=== PATIENT | male | born 1955 | race Caucasian/White ===

== ENCOUNTER → 2021-06-13 13:51 | Outpatient (BNVA) | payer MEDICARE, BC, SELFPAY | PROVIDERS: PCP Internal Medicine; Visit Provider Psychiatry & Neurology Neurology | DX: G20 Parkinson's disease (principal); G47.33 Obstructive sleep apnea (adult) (pediatric); Z79.899 Other long term (current) drug therapy | CPT/HCPCS: 99212 ==

== ENCOUNTER → 2021-10-16 09:46 | Outpatient (BNVA) | payer MEDICARE, BC, SELFPAY | PROVIDERS: PCP Internal Medicine; Visit Provider Psychiatry & Neurology Neurology | DX: G20 Parkinson's disease (principal); G47.33 Obstructive sleep apnea (adult) (pediatric); Z79.899 Other long term (current) drug therapy | CPT/HCPCS: 99212 ==

== ENCOUNTER → 2022-04-23 10:47 | Outpatient (BNVA) | payer MEDICARE, BC, SELFPAY | PROVIDERS: PCP Internal Medicine; Visit Provider Psychiatry & Neurology Neurology | DX: G20 Parkinson's disease (principal); G47.33 Obstructive sleep apnea (adult) (pediatric); Z79.899 Other long term (current) drug therapy | CPT/HCPCS: 99212 ==

== ENCOUNTER 2022-10-14 10:30 | Outpatient (AMB) | payer MEDICARE, BC, SELFPAY ==
--- NOTE | 2022-10-14 10:29 | MHC.OFFVIS ---
Intake Vital Signs 10/14/22 10:35 Weight 249 lb BP 120/70 Blood Pressure Location Rt brachial Position Sitting Pulse 64 Pulse Source Pulse Oximeter Pulse Oximetry (%) 97 Oxygen Delivery Method Room Air Intake Visit Reasons: 6 mnts F/u parkinson's-lvm Intake Note: F/U Parkinsons [employer] Processor Required: No Allergies Bees Allergy (Severe, Uncoded 10/14/22 10:32) Swelling HPI HPI Comments History of Present Illness Details 66y/o male comes for follow up of parkinsons .The tremors are same . He is active - walks 3 miles a day . He is on 1 tab qid sinemet 25/100. He is exercising - bikes. In Mar 2021 he went to atrial fibrillation and had cardioversion. He was started on flecainide and metoprolol.His tremors are intermittent.He had a recent ablation He feels he has slowed down. memory is good, occasionally forgets names. sleep is good, has some vivid dreams. Denies depression , anxiety. He is motivated.He is active , works on his yard. Bowel movements are stable. He denies any trouble with urination. No change in speech. he is independent in all his activities of daily living. [facility] Medical History Atrial fibrillation Obstructive sleep apnea Plantar fasciitis Toxic effect of trichloroethylene Surgical History H/O heart surgery Family History Family/Other Stroke Thyroid disease Father Cerebral hemorrhage Mother No problems noted. Social History Alcohol intake: never Patient Tobacco Use Status: Never used Tobacco Use of substances other than those prescribed or required for medical reasons: No Physical Exam Vital Signs: Last Vital Signs Pulse 64 10/14/22 10:35 BP 120/70 10/14/22 10:35 Pulse Ox 97 10/14/22 10:35 Oxygen Delivery Method Room Air 10/14/22 10:35 Const General: cooperative, healthy appearing and no acute distress Orientation/consciousness: patient oriented x3 HEENT Head: Yes normal to inspection Neck Other: mild antecollis and restricted range of motion Neuro Other: Mild decreased blink and facial expression Voice- normal Left UE moderate amplitude rest tremors right LE tremors Fine Finger movements - moderately decreased jluis l>R Alternating hand movements - decreased jluis Hand movements - decreased jluis Foot taps- decreased jluis No cog wheel rigidity gait - stooped,good stride and turning decreased arm swing L>R General: patient oriented x3 and no focal motor deficits Cranial nerves: Yes CN's II-XII intact bilaterally, Yes Bilaterally intact EOM present, Yes Normal facial strength present and Yes Midline tongue present Cognition (Neuro): abnormal cognition (repeats questions frequently) Motor exam (neuro): 5/5 motor strength present throughout and Normal motor muscle tone present throughout Coordination: bkjzig-vr-wizk test normal Assessment & Plan Assessment & Plan (1) Parkinson's disease: Code(s): G20 - Parkinson's disease (2) Obstructive sleep apnea: Code(s): G47.33 - Obstructive sleep apnea (adult) (pediatric) Plan continue trihexyphenidyl 2mg 0.5mg tid sinemet 25/100 qid continue exercise CPAP compliance stressed Coding Level of Care Code Est Pt Level 4 (13402) Diagnoses Parkinson's disease G20 Obstructive sleep apnea G47.33
[2022-10-14 10:35] VITALS: BP 120/70; PULSE 64; O2SAT 97
== END 2022-10-14 11:07 | disposition home or self-care (01) ==
PROVIDERS: Visit Provider Psychiatry & Neurology Neurology
DX: G20 Parkinson's disease (principal); G47.33 Obstructive sleep apnea (adult) (pediatric)
CPT/HCPCS: 99214

== ENCOUNTER → 2022-10-14 10:30 | Outpatient (BNVA) | payer MEDICARE, BC, SELFPAY | PROVIDERS: Visit Provider Psychiatry & Neurology Neurology | DX: G20 Parkinson's disease (principal); G47.33 Obstructive sleep apnea (adult) (pediatric); Z79.899 Other long term (current) drug therapy | CPT/HCPCS: 99212 ==

== ENCOUNTER 2023-05-29 10:20 | Outpatient (AMB) | payer MEDICARE, BC, SELFPAY ==
--- NOTE | 2023-05-29 10:24 | A.OFFVIS_ITS ---
Intake Vital Signs 05/29/23 10:29 Height 6 ft Weight 264 lb BMI 35.8 BP 128/68 Blood Pressure Location Rt brachial Position Sitting Respiration 16 Pulse 67 Pulse Source Pulse Oximeter Pulse Oximetry (%) 97 Oxygen Delivery Method Room Air Intake Visit Reasons: 6m follow up Parkinson's-CONF Intake Note: Pt presents to the office for 6 month follow up for Parkinson's. [employer]ship Required: No Allergies Bees Allergy (Severe, Uncoded 05/29/23 10:29) Swelling HPI HPI Comments History of Present Illness Details 67y/o male comes for follow up of dejan sons .The tremors are same . He is active - walks 3 miles a day .He feels he is slower. He did yoga and it has helped iwth posture mainatinance. He is on 1 tab qid sinemet 25/100. He is exercising - bikes. In Mar 2021 he went to atrial fibrillation and had cardioversion. He was started on flecainide and metoprolol.His tremors are intermittent.He had a recent ablation memory is good, occasionally forgets names. sleep is good, has some vivid dreams. Denies depression , anxiety. He is motivated.He is active , works on his yard. Bowel movements are stable. He denies any trouble with urination. No change in speech. he is independent in all his activities of daily living. [facility] Medical History Parkinson's disease without dyskinesia Toxic effect of trichloroethylene Plantar fasciitis Obstructive sleep apnea Atrial fibrillation Surgical History H/O heart surgery Family History Family/Other Stroke Thyroid disease Father Cerebral hemorrhage Mother No problems noted. Social History Alcohol intake: never Patient Tobacco Use Status: Never used Tobacco Physical Exam Vital Signs: Last Vital Signs Pulse 67 05/29/23 10:29 Resp 16 05/29/23 10:29 BP 128/68 05/29/23 10:29 Pulse Ox 97 05/29/23 10:29 Oxygen Delivery Method Room Air 05/29/23 10:29 BMI result Body Mass Index 35.8 Const General: cooperative, healthy appearing and no acute distress Orientation/consciousness: patient oriented x3 HEENT Head: Yes normal to inspection Neck Other: mild antecollis and restricted range of motion Neuro Other: Mild decreased blink and facial expression Voice- normal Left UE moderate amplitude rest tremors right LE tremors Fine Finger movements - moderately decreased jluis l>R Alternating hand movements - decreased jluis Hand movements - decreased jluis Foot taps- decreased jluis No cog wheel rigidity gait - stooped,good stride and turning decreased arm swing L>R General: patient oriented x3 and no focal motor deficits Cranial nerves: Yes CN's II-XII intact bilaterally, Yes Bilaterally intact EOM present, Yes Normal facial strength present and Yes Midline tongue present Cognition (Neuro): abnormal cognition (repeats questions frequently) Motor exam (neuro): 5/5 motor strength present throughout and Normal motor muscle tone present throughout Coordination: oxeyzj-ye-hndm test normal Assessment & Plan Assessment & Plan (1) Parkinson's disease without dyskinesia: Code(s): G20.A1 - Parkinson's disease without dyskinesia, without mention of fluctuations (2) Obstructive sleep apnea: Code(s): G47.33 - Obstructive sleep apnea (adult) (pediatric) Plan continue trihexyphenidyl 2mg 0.5mg tid sinemet 25/100 qid continue exercise CPAP compliance stressed Coding Level of Care Code Est Pt Level 4 (72613) Diagnoses Parkinson's disease without dyskinesia G20.A1 Obstructive sleep apnea G47.33
[2023-05-29 10:29] VITALS: BP 128/68; PULSE 67; RESP 16; O2SAT 97; BMI 35.8
== END 2023-05-29 11:09 | disposition home or self-care (01) ==
PROVIDERS: PCP Internal Medicine; Visit Provider Psychiatry & Neurology Neurology
DX: G20.A1 Parkinson's disease without dyskinesia, without mention of fluctuations (principal); G47.33 Obstructive sleep apnea (adult) (pediatric)
CPT/HCPCS: 99214

== ENCOUNTER → 2023-05-29 10:20 | Outpatient (BNVA) | payer MEDICARE, BC, SELFPAY | PROVIDERS: PCP Internal Medicine; Visit Provider Psychiatry & Neurology Neurology | DX: G20.A1 Parkinson's disease without dyskinesia, without mention of fluctuations (principal); G47.33 Obstructive sleep apnea (adult) (pediatric) | CPT/HCPCS: 99212 ==

== ENCOUNTER 2023-11-04 10:25 | Outpatient (AMB) | payer MEDICARE, BC, SELFPAY ==
--- NOTE | 2023-11-04 10:29 | MHC.OFFVIS ---
Vital Signs 11/04/23 10:30 Height 6 ft Weight 247 lb 4 oz BMI 33.5 BP 118/62 Blood Pressure Location Rt brachial Position Sitting Respiration 16 Pulse 59 Pulse Source Pulse Oximeter Pulse Oximetry (%) 98 Oxygen Delivery Method Room Air Intake Visit Reasons: 6 Month F/U Intake Note: Pt presents for 6 month follow up Parkinson's. Hardware Technician Required: No Allergies Bees Allergy (Severe, Uncoded 11/04/23 10:30) Swelling HPI Comments Details: 67y/o male comes for follow up of parkinsons .He is doing the same except for his walking.He feels like he is slower. The tremors are same . He is active - walks 3 miles a day .He does long distance biking - rides about 50 miles a week,He developed tendinitis in his left ankle and is on therapy .He does stretching every morning. He is on 1 tab qid sinemet 25/100. In Mar 2021 he went to atrial fibrillation and had cardioversion. He was started on flecainide and metoprolol.His tremors are intermittent.He had a recent ablation memory is good, occasionally forgets names. sleep is good, has some vivid dreams. He is compliant with CPAP. Denies depression , anxiety. He is motivated.He is active , works on his yard. Bowel movements are stable. He denies any trouble with urination. No change in speech. he is independent in all his activities of daily living. [facility] Medical History Parkinson's disease without dyskinesia Toxic effect of trichloroethylene Plantar fasciitis Obstructive sleep apnea Atrial fibrillation Surgical History H/O heart surgery Family History Family/Other Stroke Thyroid disease Father Cerebral hemorrhage Mother No problems noted. Social History Alcohol intake: never Patient Tobacco Use Status: Never used Tobacco Physical Exam Vital Signs: Last Vital Signs Pulse 59 11/04/23 10:30 Resp 16 11/04/23 10:30 BP 118/62 11/04/23 10:30 Pulse Ox 98 11/04/23 10:30 Oxygen Delivery Method Room Air 11/04/23 10:30 BMI result Body Mass Index 33.5 Const General: cooperative, healthy appearing and no acute distress Orientation/consciousness: patient oriented x3 HEENT Head: Yes normal to inspection Neck Other: mild antecollis and restricted range of motion Neuro Other: Mild decreased blink and facial expression Voice- normal Left UE moderate amplitude rest tremors right LE tremors Fine Finger movements - moderately decreased jluis l>R Alternating hand movements - decreased jluis Hand movements - decreased jluis Foot taps- decreased jluis No cog wheel rigidity gait - stooped,good stride and turning decreased arm swing L>R General: patient oriented x3 and no focal motor deficits Cranial nerves: Yes CN's II-XII intact bilaterally, Yes Bilaterally intact EOM present, Yes Normal facial strength present and Yes Midline tongue present Cognition (Neuro): abnormal cognition (repeats questions frequently) Motor exam (neuro): 5/5 motor strength present throughout and Normal motor muscle tone present throughout Coordination: [id number]-yh-xgzl test normal Assessment & Plan Assessment & Plan (1) Parkinson's disease without dyskinesia: Code(s): G20.A1 - Parkinson's disease without dyskinesia, without mention of fluctuations Category: Medical (2) Obstructive sleep apnea: Code(s): G47.33 - Obstructive sleep apnea (adult) (pediatric) Category: Medical Plan continue trihexyphenidyl 2mg 0.5mg tid sinemet 25/100 qid- 7am 1 2noon - 5pm-10pm continue exercise CPAP compliance stressed Coding Level of Care Code Est Pt Level 4 (65478) Complex EM visit Add On G2211 Diagnoses Parkinson's disease without dyskinesia G20.A1 Obstructive sleep apnea G47.33
[2023-11-04 10:30] VITALS: BP 118/62; PULSE 59; RESP 16; O2SAT 98; BMI 33.5
== END 2023-11-04 10:57 | disposition home or self-care (01) ==
PROVIDERS: PCP Internal Medicine; Visit Provider Psychiatry & Neurology Neurology
DX: G20.A1 Parkinson's disease without dyskinesia, without mention of fluctuations (principal); G47.33 Obstructive sleep apnea (adult) (pediatric)
CPT/HCPCS: 99214; G2211

== ENCOUNTER → 2023-11-04 10:25 | Outpatient (BNVA) | payer MEDICARE, BC, SELFPAY | PROVIDERS: PCP Internal Medicine; Visit Provider Psychiatry & Neurology Neurology | DX: G20.A1 Parkinson's disease without dyskinesia, without mention of fluctuations (principal); G47.33 Obstructive sleep apnea (adult) (pediatric) | CPT/HCPCS: 99212 ==

== ENCOUNTER 2024-05-25 10:52 | Outpatient (AMB) | payer MEDICARE, BC, SELFPAY ==
[2024-05-25 10:58] VITALS: BP 134/78; PULSE 65; O2SAT 96; BMI 34.7
--- NOTE | 2024-05-25 10:58 | A.OFFVIS_ITS ---
Vital Signs 05/25/24 10:58 Height 6 ft Weight 256 lb BMI 34.7 BP 134/78 Blood Pressure Location Rt brachial Position Sitting Pulse 65 Pulse Source Pulse Oximeter Pulse Oximetry (%) 96 Oxygen Delivery Method Room Air Intake Visit Reasons: Follow Up 6mo Intake Note: patient following up for Parkinsons and JOSE compliance 05/17/24 Allergies Bees Allergy (Severe, Uncoded 05/25/24 11:00) Swelling HPI Comments Details: 68y/o male comes for follow up of parkinsons. He is going for evaluation for MRI guided ultrasound therapy at [facility]. The tremors are worse . He is active - walks 3 miles a day .He does long distance biking - rides about 50 miles a week in summer. Now he skates No falls He is on 1 tab qid sinemet 25/100.He does not want to increase In Mar 2021 he went to atrial fibrillation and had cardioversion. He was started on flecainide and metoprolol.His tremors are intermittent.He had a recent ablation memory is good, occasionally forgets names. sleep is good, has some vivid dreams. He is compliant with CPAP. 90 day compliance 100% Usage hrs over 6 hrs AHI 2.2 CPAP at 7 cm Denies depression , anxiety. He is motivated.He is active , works on his yard. Bowel movements are stable. He denies any trouble with urination. No change in speech. he is independent in all his activities of daily living. [facility] Medical History Parkinson's disease without dyskinesia Toxic effect of trichloroethylene Plantar fasciitis Obstructive sleep apnea Atrial fibrillation Surgical History H/O heart surgery Family History Family/Other Stroke Thyroid disease Father Cerebral hemorrhage Mother No problems noted. Social History Alcohol intake: never Patient Tobacco Use Status: Never used Tobacco Physical Exam Vital Signs: Last Vital Signs Pulse 65 05/25/24 10:58 BP 134/78 05/25/24 10:58 Pulse Ox 96 05/25/24 10:58 Oxygen Delivery Method Room Air 05/25/24 10:58 BMI result Body Mass Index 34.7 Const General: cooperative, healthy appearing and no acute distress Orientation/consciousness: patient oriented x3 HEENT Head: Yes normal to inspection Neck Other: mild antecollis and restricted range of motion Neuro Other: Mild decreased blink and facial expression Voice- normal Left UE moderate amplitude rest tremors Fine Finger movements - moderately decreased jluis l>R Alternating hand movements - decreased jluis Hand movements - decreased jluis Foot taps- decreased jluis No cog wheel rigidity gait - stooped,good stride and turning decreased arm swing L>R General: patient oriented x3 and no focal motor deficits Cranial nerves: Yes CN's II-XII intact bilaterally, Yes Bilaterally intact EOM present, Yes Normal facial strength present and Yes Midline tongue present Motor exam (neuro): 5/5 motor strength present throughout and Normal motor muscle tone present throughout Coordination: cxggwd-fg-wuri test normal Assessment & Plan Assessment & Plan (1) Parkinson's disease without dyskinesia: Code(s): G20.A1 - Parkinson's disease without dyskinesia, without mention of fluctuations Category: Medical Qualifiers: Fluctuating manifestations: without fluctuating manifestations Qualified Code(s): G20.A1 - Parkinson's disease without dyskinesia, without mention of fluctuations (2) Obstructive sleep apnea: Code(s): G47.33 - Obstructive sleep apnea (adult) (pediatric) Category: Medical Plan continue trihexyphenidyl 2mg 1/2 ab q noon and qhs sinemet 25/100 qid- 7am 1 2noon - 5pm-10pm continue exercise CPAP compliance stressed MRI guided USG - at [facility] Coding Level of Care Code Est Pt Level 4 (34512) Complex EM visit Add On G2211 Diagnoses Parkinson's disease without dyskinesia or fluctuating manifestations G20.A1 Fluctuating manifestations: without fluctuating manifestations Obstructive sleep apnea G47.33
--- OUTSIDE RECORDS SUMMARY | 2024-05-25 13:02 | XMS_ITS ---
Author Name [facility] Organization Unknown Problems Problem Status Onset Date Problem Type Date of Resolution Source Parkinson's disease without dyskinesia or fluctuating manifestations (HCC) active EncounterDiagnosisAct CCT Care Team Organization Name Specialty Phone Email Start Date End Da te [facility] XENIA [facility] Primary Care 04/05/2024 [facility] 03/29/2024
--- OUTSIDE RECORDS SUMMARY | 2024-05-25 13:02 | XMS_ITS ---
Author Organization [facility] Address [address] [place] [address] Care Team Providers Care Surgery Nurse Name Role Phone Ulysses Richey MD Primary Care Provider UnavailJyoti Barraza [phone] Encounters Encounter Location Date Provider Diagnosis [address] [address] 02/17/2024 Jyoti Collier Plan Of Treatment No Information Progress Notes * ALESIA Franko EugeneDOB:[birth year] (68 yo M)Acc No.[id number]:02/17/2024 Progress Note Patient:Franko ROD Provider:?Jyoti Collier DPM :1955???Age:68 Y???Sex:Male Emanuel e:02/17/2024 Address:[address] [place], [place] [id number] Pcp:Ulysses Richey MD Subjective: * Chief Complaints: * ??? * Medical History:? Objective: * Vitals:? Assessment: Plan: * Treatment: * Images: * The named appointment provid er may or may not be the originator of this progress note, and it is not deemed complete until electronically signed by the appointment provider. Sign off status: Pending * Provider:?Jyoti Collier DPM Date:?2023 Generated for Darrius martin/Concepcion/eTransmitting on:?05/25/2024 01:02 PM EDT
--- OUTSIDE RECORDS SUMMARY | 2024-05-25 13:02 | XMS_ITS | Patient Health Record ---
Author Organization [facility] Address [address] [place] [address] Care Team Providers Care Special Delivery Mail Carrier Name Role Phone Ulysses Richey MD Primary Care Provider Unavailab rosi Jyoti Collier Unavailable [phone] Allergies Allergen (clinical drug ingredient) Drug/Non Drug Allergy documented on EMR Reaction Allergy Type Onset Date Status Bee Sting Unknown Allergy Active Results Component Value Reference Range Notes X ray : Ankle, left 3V Reviewed date:09/30/2023 11:31:08 AM Interpretation:See Examination above Performing Lab: Notes/Report: See Examination above Reason For Referral No Information Medications Medication SIG (Take, Route, Frequency, Duration) Notes Start Date End Date Status Custom Orthotics as directed 11/04/2017 Not-Taking Eliquis 5 MG as directed Orally Active Cialis Active Trihexyphenidyl HCl 2 MG 1 tablet Orally Active Night Splint AFO - L1930 1 wear at rest for 30 days Not-Taking Physical Therapy . . . 2-3x/week for 3- 4 weeks 09/30/2023 Not-Taking Carbidopa 25 MG Orally Three times a day Active ZyrTEC Allergy Activ e Immunizations Vaccine Route Administration Date Status Comme nts COVID-19 Pfizer BioNTech Vaccine Unknown 05/20/2020 Administered 1st vaccine Social History Tobacco Use: Social History Observation Description Date Details (start date - stop date) Never Smoker NA - NA Tobacco Use/Smoking Question Answer Notes Are you a: nonsmoker Alcohol Screen Question Answer Notes Did you have a drink containing alcohol in the p ast year? Yes Points 0 Interpretation Negative Tobacco use other than smoking: Question Answer Notes Are you an other tobacco user? No Problems Problem Type SNOMED Code ICD Code Onset Dates Problem Status W/U Status Risk Notes Problem Localized, primary osteoarthritis of the ankle and/or foot (238205763) Primary osteoarthritis, right ankle and foot (M19.071) Active confirmed Problem Localized, primary osteoarthritis of the ankle and/or foot (960781761) Primary osteoarthritis, left ankle and foot (M19.072) Active confirmed Problem Non-pressure ulcer lower limb (752013488) Non-pressure chronic ulcer of other part of right foot limited to breakdown of skin (L97.511) Active confirmed Problem Acquired hammer toe of right foot (8014003854724573) Other hammer toe(s) (acquired), right foot (M20.41) Active confirmed Problem Acquired hammer toe of left foot (2795656175918663) Other hammer toe(s) (acquired), left foot (M20.42) Active confirmed Problem 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) Active confirmed Problem Acquired deformity of left foot (97567814919426047 ) PlantarFlexion of metatarsal of left foot (M21.6X2) Active confirmed Vital Signs Height 6ft in 11/17/2023 Weight 235 lbs 11/17/2023 BMI 31.87 kg/m2 11/17/2023 Encounters Encounter Location Date Provider Diagnosis [address] [address] 09/30/2023 Jyoti Black Acute left ankle cristal n M25.572 ; Achilles tendinitis of left lower extremity M76.62 ; Pain of left heel M79.672 ; Short Achilles tendon (acquired), left ankle M67.02 ; Ingrown nail L60.0 and Sprain of posterior talofibular ligament of left ankle, initial encounter S93.492A [address] [place] [address] 11/17/2023 Jyoti Black Acute left ankle cristal n M25.572 ; Achilles tendinitis of left lower extremity M76.62 ; Pain of left heel M79.672 and Short Achilles tendon (acquired), left ankle M67.[address] [place] [address] 02/02/2024 Jyoti Collier Assessments Encounter Date Diagnosis (ICD Code) Assessment Notes Treatment Notes Treatment Clinical Notes Section Notes 09/30/2023 Achilles tendinitis of left lower extremity (ICD-10 - M76.62) Patient Educated with: HEEL CORD STRETCHES.pdf (HEEL CORD STRETCHES.pdf) Patient Educated with: RICE THERAPY.pdf (RICE THERAPY.pdf) 09/30/2023 Acute left ankle pain (ICD-10 - M25.572) 11/17/2023 Achilles tendinitis of left lower extremity (ICD-10 - M76.62) Resistant to previous conservative treatment Continue with Physical therapy 11/17/2023 Acute left ankle pain (ICD-10 - M25.572) 11/17/2023 Pain of left heel (ICD-10 - M79.672) 09/30/2023 Pain of left heel (ICD-10 - M79.672) 09/30/2023 Short Achilles tendon (acquired), left ankle (ICD-10 - M67.02) 11/17/2023 Short Achilles tendon (acquired), left ankle (ICD-10 - M67.02) 09/30/2023 Ingrown nail (ICD-10 - L60.0) 09/30/2023 Sprain of posterior talofibular ligament of left ankle, initial encounter (ICD-10 - S93.492A) Plan Of Treatment Pending Test Test Name Order Date [id number] NAIL, -03/07/2020 [id number] NAIL, -07/04/2020 26193-Byuc Destruction, -07/04/2020 95207-Yrac Destruction, -12/20/2019 57978-Vidk Destruction, -03/07/2020 09814- Debride <25 sq cm 11/04/201794620,D0244-XUD TENDON SHEATH/LIGAMENT 1 04/08/2017 Insurance Providers Payer Name Payer Address Payer Phone Subscriber Number Group Number Insured Name Patient Relationship to Insured Coverage Start Date Coverage End Date Medicare [employer] [address] [place] [address] [id number] [place] u, Franko Self - patient is the insured [facility] [address] [place] [address] [id number] Franko Deluna Self - patient is the insured Medical (General) History Medical History History ICD Code Measles Mumps Chicken pox Parkinsons disease Surgical History Surgery Date(Month/Year) rght leg varicose veins removed 03/2018 cardio ablation 05/2021
--- OUTSIDE RECORDS SUMMARY | 2024-05-25 13:02 | XMS_ITS ---
Author Organization [facility] Rosenda stevens [place] Address [address] [facility] [place] [address] Care Team Providers Care Aircraft Stress Analyst Name Role Phone Ulysses Richey MD Primary Care Provider Darcy SchulteMichaelae Unavailable [phone] Allergies Allergen (clinical drug ingredient) Drug/Non Drug Allergy documented on EMR Reaction Allergy Type Onset Date Status Bee Sting Unknown Allergy Active REASON FOR VISIT Heel pain Medications Medication SIG (Take, Route, Frequency, Duration) Notes Start Date End Date Status Eliquis 5 MG as directed Orally Active Night Splint AFO - L1930 1 wear at rest for 30 days Not-Taking Physical Therapy . . . 2-3x/week for 3- 4 weeks 09/30/2023 Not-Taking Carbidopa 25 MG Orally Three times a day Active ZyrTEC Allergy Activ e Custom Orthotics as directed 11/04/2017 Not-Taking Cialis Active Trihexyphenidyl HCl 2 MG 1 tablet Orally Active Social History Tobacco Use: Social History Observation [...] Are you an other tobacco user? No Vital Signs Height 6ft in 11/17/2023 Weight 235 lbs 11/17/2023 BMI 31.87 kg/m2 11/17/2023 Encounters Encounter Location Date Provider Diagnosis [facility] [place] [address] 11/17/2023 Jyoti Collier Acute left ankle cristal n M25.572 ; Achilles tendinitis of left lower extremity M76.62 ; Pain of left heel M79.672 and Short Achilles tendon (acquired), left ankle M67.02 Assessments Encounter Date Diagnosis (ICD Code) Assessment Notes Treatment Notes Treatment Clinical Notes Section Notes 11/17/2023 Acute left ankle pain (ICD-10 - M25.572) 11/17/2023 Achilles tendinitis of left lower extremity (ICD-10 - M76.62) Resistant to previous conservative treatment Continue with Physical therapy 11/17/2023 Pain of left heel (ICD-10 - M79.672) 11/17/2023 Short Achilles tendon (acquired), left ankle (ICD-10 - M67.02) Plan Of Treatment Treatment Notes Assessment Notes Achilles tendinitis of left lower extrem ity Continue with Physical therapy Next Appt Details Follow Up: 2 Months, Reason: Progress Notes * Franko TOLEDODOB:[birth year] (67 yo M)Acc No.[id number]:11/17/2023 Progress Notes Patient:?Franko Toledo Provider:?Jyoti CollierPRASANNA :1955???Age:67 Y???Sex:Male Emanuel e:11/17/2023 Address:[address] [place], [place] [id number] Pcp:Ulysses Richey MD Subjective: * Chief Complaints: * ???Heel pain * HPI: ???Heel pain:?Location:?Back of heel, LEFT.?Duration:?, several months.?Course:?, unchanged-pain still present going up and down stairs/hills.?Aggravated:?standing, walking, walking first thing in the morning/after rest.?Treatments:?rest/alter normal daily activity , physical therapy.? pt has stoped hiking but continues to golf. * ROS:?General/Constitutional:?Nausea?denies.?Vomiting?denies.?Hunger Thirst?denies.?Loss appetite?denies.?Chills?denies.?Fatigue?denies.?Fever?denies.?Night Sweats?denies.?Unexplained weight loss?denies.?Unexplained weight gain?denies.?HEENTM:?Dentures?denies.?Dizziness?denies.?Glasses/contacts?denies.?Retinopathy?de nies.?Blurred/double vision?denies.?TMJ?denies.?Discharge/drainage?denies.?Implants?denies.?Sore throat?denies.?Dental implants?denies.?Hard of hearing ?denies.?Difficulty chewing/swallowing/speaking?denies.?Nose bleeds?denies.?Sore mouth?denies.?Respiratory:?On Oxygen?denies.?Pneumonia/pleurisy?denies.?Bronchitis?denies.?Emphysema?denies.?C oughing?denies.?Cough blood?denies.?Shortness of breath?denies.?Wheezing?denies.?Cardiovascular:?Pacemaker?denies.?MVP?denies.?WPW?denies.?CHF?denies.?Heart attack?denies.?Septal defect?denies.?Rapid beat?denies.?Chest pain ?denies.?Atrial Fib.?admits.?Murmur/Palpitations?denies.?Gastrointestinal:?Hemorrhoids?denies.?Stomach/Abdominal pain?denies.?Dark blood stool?denies.?Irritable bowel ?denies.?Constipation?denies.?Diarrhea?denies.?Hematology:?Swelling?denies.?Clots?denies.?Varicose Veins?denies.?Bruising?denies.?Bleeding problem?denies.?Genitourinary:?Blood urine?denies.?Frequent/Painfu/urination/bladder control?denies.?Kidney stones?denies.?Infection (UTI)?denies.?Nephropathy?denies.?sex trans dis (STD)?denies.?Prostate?denies.?Musculoskeletal:?Hammertoes?denies.?Bunions?denies.?Back Pain?denies.?Muscle Cramps/ Resting?denies.?Muscle cramps / walking?denies.?Generalized aches and pains?admits.?Weakness?denies.?Integ.:?Valencia?denies.?Scars?denies.?Corns/calluses?denies.?Ingrown nails?admits.?Painful nails?denies.?Open Sores?denies.?Rashes?denies.?Neurologic:?Difficulty sleeping?denies.?Brain disorder?denies.?Numbness?denies.?Balance trouble?denies.?Confusion?denies.?Fainting/blackouts?denies.?Tingling?denies.?Tr emors?denies.? * Medical History:? * Surgical History:?rght leg v aricose veins removed 03/2018cardio ablation 05/2021 * Hospitalization/Major Diagno stic Procedure:?No Hospitalization History. * Family History:?Mother: dece ased.?Father: .? * Social History:?Tobacco Use:?Tobacco Use/Smoking?Are you a:?nonsmoker ?Tobacco use other than smoking?Are you an other tobacco user??No ???Drugs/Alcohol:?Drugs?Have you used drugs other than those for medical reasons in the past 12 months??No ?Alcohol Screen?Did you have a drink containing alcohol in the past year??Yes ?Points?0 ?Interpretation?Negative ???Miscellaneous:?no Caffeine, none. ?Children: yes. ?Exercise: walks 10 miles a day. ?Marital status: . ?Occupation: Retired. * Medications:?TakingCialis Tr ihexyphenidyl HCl 2 MG Tablet 1 tablet Orally Eliquis 5 MG Tablet as directed Orally Carbidopa 25 MG Tablet Orally Three times a dayZyrTEC Allergy Taking Cialis Taking Trihexyphenidyl HCl 2 MG Tablet 1 tablet Orally Taking Eliquis 5 MG Tablet as directed Orally Taking Carbidopa 25 MG Tablet Orally Three times a dayTaking ZyrTEC Allergy Not-Taking/PRNCustom Orthotics as directed Night Splint AFO - L1930 1 wear at restPhysical Therapy . . . . 2-3x/weekMedication List reviewed and reconciled with the patientNot-Taking/PRN Custom Orthotics as directed Not-Taking/PRN Night Splint AFO - L1930 1 wear at restNot-Taking/PRN Physical Therapy . . . . 2-3x/weekMedication List reviewed and reconciled with the patient * Allergies:?Bee Stingyes[Arnie rgies Verified] Objective: * Vitals:?Ht: 6ft, Wt:235, BMI :31.87, Shoe size: 12, Ht-cm: 182.88 cm, Wt-k.59 kg. * Examination: ???Heel Pain: ?INSPECTION:?Pain on palpation to Posterior Superior Aspect Calcaneus,Pain on palpation to Achilles tendon/bursa with inflammation and swelling present,Prominent posterior and posterior/superior heel present, LEFT foot,Neg [place].? Assessment: * Assessment: 1.?Achilles tendinitis of le ft lower extremity - M76.62 (Primary), Resistant to previous conservative treatment?2.?Acute left ankle pain - M25.572?3.?Pain of left heel - M79.672?4.?Short Achilles tendon (acquired), left ankle - M67.02? Plan: * Treatment: * Procedure Codes:? * Preventive Medicine:? ??Counseling:?Discussion:?-13: Office or other outpatient visit for the evaluation and management of an established patient, which required a medically appropriate history and/or examination and LOW level of DECISION MAKING for: 1 STABLE ACUTE UNCOMPLICATED PROBLEM, 2 OR MORE MINOR PROBLEMS, OR 1 STABLE CHRONIC PROBLEM, THAT POSE(S) A LOW RISK FOR MORBIDITY/MORTALITY. The visit on the day of the encounter encompassed interpreting the data and educating the patient as to the nature of their condition, treatment options available according to their individual PMH, meds, allergies, and overall health/living conditions, as well as any potential risks or complications that may occur from a failure to adhere to, and participate in, the recommended course of therapy. The discussion included a complete verbal, and/or written explanation of the examination results, any x-rays taken, the proposed diagnosis, and outline of the treatment plan. A schedule for future care needs was also explained. The patient verbalized an understanding of the instructions at this time and agreed to be an active participant in their treatment. If the patient should think of any questions or concerns after the visit, I have encouraged the patient to call the office.?P.R.I.C.E.:?The patient was counseled on the use of P.R.I.C.E. and NSAIDS (if well tolerated) to aid in the recovery from their painful condition.Discussed with pt the need to stop activities that cause a flare up i.e. golf. Disucssed possible AFO brace- Pt defers.?Physical Therapy:?Reviewed notes from Physical Therapist with the patient.Pt will continuewith present tx jameel and states golf will end in a few weeks.? * Follow Up:?2 Months * Images: * Sign off status: Completed true * Provider:?Jyoti Collier DPM Date:?2023 Generated for Darrius martin/Concepcion/Noelle on:?05/25/2024 01:02 PM EDT History and Physical Notes * HPI (History of Present Illness) Category Sub-Category Detail Notes Category Not es Heel pain Duration: , several months pt has sto ped hiking but continues to golf Location: Back of heel, LEFT Aggravated: standing, walking, w alking first thing in the morning/after rest Course: , unchanged-pain sti ll present going up and down stairs/hills Treatments: rest/alter normal da gela activity , physical therapy Examination Category Sub-Category Detail Notes Category Not es Heel Pain INSPECTION: Pain on palpatio n to Posterior Superior Aspect Calcaneus, Pain on palpation to Achilles tendon/bursa with inflammation and swelling present, Prominent posterior and posterior/superior heel present, LEFT foot, Neg [place]
--- OUTSIDE RECORDS SUMMARY | 2024-05-25 13:02 | XMS_ITS | Clinical Summary ---
Author Organization [address] [place] [address] [place] [address] Phone Care Team Providers Care Plaster Block Layer Name Role Phone Ulysses Quinn MD Primary Care Provider Allergies Active Allergy Reactions Criticality Noted Date Comments Bee Pollen 11/26/2023 Other 01/01/2023 Bee Stings Other reaction(s): Unknown Medications fluticasone furoate-vilante roL (BREO ELLIPTA) 100-25 mcg/dose inhaler Inhale into the lungs. Active trihexyphenidyL (ARTANE) 2 mg tablet Take 0.5 mg by mouth 3 times daily. Pt stated to take a 0.5 tab 3 times a day Active budesonide (RHINOCORT AQ) 32 mcg/actuation nasal spray 2 Sprays by Nasal route daily. 0 Active carbidopa-levod opa (SINEMET) 25-100 mg per tablet Take 1 Tablet by mouth 4 times daily. 0 Active azelastine (ASTELIN) 137 mcg (0.1 %) nasal spray 2 Sprays by Each Nare route 2 times daily. Use in each nostril as directed 0 Active cetirizine (ZyrTEC) 10 mg tablet Take 1 Tab by mouth as needed for Allergies. 0 Active levalbuterol (XOPENEX HFA) 45 mcg/actuation inhaler Inhale 1-2 Puffs into the lungs every 4 hours as needed for Wheezing, Shortness of Breath or Cough. 0 Active Eliquis 5 mg tablet TAKE 1 TABLET BY MOUTH TWICE A DAY 60 tablet 5 4 Active Active Problems Problem Noted Date Diagnosed Date Atrial fibrillation 11/26/2023 Overview (11/26/2023): Paroxysmal atrial fibrillation: First ablation in 2011. He did well for many years and then had a second ablation 2018 where isolation of the right upper vein was required. In July 2014 he underwent radiofrequency ablation with wide area circumferential ablation of the pulmonary veins with posterior wall isolation and mitral isthmus ablation due to inducible mitral flutter. He had a flutter ablation during his previous ablations and bidirectional block has been confirmed. CHADSVASC score of 2 for age and hypertension. He is on a CPAP and limits alcohol intake Last Assessment & Plan: Raúl is maintaining normal sinus rhythm with a single episode requiring flecainide to terminate the atrial fibrillation. He is avoiding alcohol, treating his sleep apnea and taking Eliquis with good tolerance. Given the Parkinson's disease he may want to consider a Watchman device at some point but so far he is doing well with the Eliquis. I will represcribe flecainide to be used on an as-needed basis. Assessment & Plan (01/04/2024 10:09 AM EST): Raúl is doing relatively well with a minimal atrial fibrillation burden. Flecainide was successful in converting his last episode and he will continue to use it on an as-needed basis. He is remaining healthy and exercising regularly and avoiding alcohol. Will continue to monitor for any symptomatic recurrences clinically. I had a discussion with him regarding pros and cons of a watchman implantation given his Parkinson's disease is progressing. His overall risk for stroke remains on the low side but I think he would be an excellent candidate and will discuss this again in the near future. Parkinson's disease 11/26/2023 Bradycardia 05/07/2020 Overview (11/26/2023): Bradycardia Palpitations 05/07/2020 Overview (11/26/2023): Palpitations Animal dander allergy 04/18/2020 Perennial allergic rhinitis 04/18/2020 Bee sting reaction 10/13/2019 PND (post-nasal drip) 10/13/2019 Sleep apnea 10/13/2019 Wheezing 10/13/2019 Surgical History Surgery Date Site/Laterality Comments CARDIOVERSION Medical History Medical History Date Comments Parkinson's disease Social History Tobacco Use Types Packs/Day Years Used Date Smoking Tobacco: Former Cigarettes Smokeless Tobacco: Never Alcohol Use Standard Drinks/Week Comments Not Currently 0 (1 standard drink = 0.6 oz pur e alcohol) Sex and Gender Information Value Date Recorded Sex Assigned at Not on file Legal Sex Male 11:04 AM EST Gender Identity Not on file Sexual Orientation Not on file Obstetrics History Last Filed Vital Signs Vital Sign Reading Time Taken Comments Blood Pressure 110/72 01/04/2024 9:24 AM EST Pulse 54 01/04/2024 9:24 AM EST Temperature - - Respiratory Rate - - Oxygen Saturation 99% 01/04/2024 9:24 AM EST Inhaled Oxygen Concentration - - Weight 109 kg (240 lb) 01/04/2024 9:24 AM EST Height 198.1 cm (6' 6 ) 01/04/2024 9:24 AM EST j 6 Body Mass Index 27.73 01/04/2024 9:24 AM EST Plan of Treatment Health Maintenance Due Date Last Done Comments DTaP,Tdap,and Td Vaccines (1 - Tdap) 12/17/1974 Zoster Vaccines (1 of 2) 12/17/2005 Abdominal Aortic Aneurysm (A AA) Screen 02/08/2022 Cholesterol Screening (Lipid Panel) 02/08/2022 Colorectal Cancer Screening: Colonoscopy 02/08/2022 Depression Screening 02/08/2022 Falls Risk Assessment 02/08/2022 Hepatitis C Screening 02/08/2022 Social Influencers of Health Screening 02/08/2022 Pneumococcal Vaccine: 50+ Ye ars (2 of 2 - PPSV23) 02/15/2022 02/15/2021 Medicare Annual Wellness Visit 03/12/2023 03/12/2022 COVID-19 Vaccine (1 - 2023-2 5 season) 2023 Influenza Vaccine (#1) 2023 11/28/2022 RSV Immunization Patients 60 + Years Old (1 - 1-dose 75+ series) 12/17/2030 HIB Vaccines Aged Out No longer eligi ble based on patient's age to complete this topic HPV Vaccines Aged Out No longer eligi ble based on patient's age to complete this topic Hepatitis A Vaccines Aged Out No long er eligible based on patient's age to complete this topic Hepatitis B Vaccines Aged Out No long er eligible based on patient's age to complete this topic IPV Vaccines Aged Out No longer eligi ble based on patient's age to complete this topic MMR Vaccines Aged Out No longer eligi ble based on patient's age to complete this topic Meningococcal ACWY Vaccine Aged Out N o longer eligible based on patient's age to complete this topic Meningococcal B Vacine Aged Out No lo nger eligible based on patient's age to complete this topic RSV Immunization Patients Un josh 20 months Aged Out No longer eligible b ased on patient's age to complete this topic Varicella Vaccines Aged Out No longer eligible based on patient's age to complete this topic Insurance [facility]ARE [facility] Care Teams Plaster Block Layer Relationship Specialty Start Date End Date Ulysses Quinn MD [address] [place] [address] PCP - General Internal Medicine 11/26/23
--- OUTSIDE RECORDS SUMMARY | 2024-05-25 13:03 | XMS_ITS ---
Author Organization [facility] Address [address] [facility] [place] [address] Care Team Providers Care Pharmacy Affairs Assistant Name Role Phone Ulysses Richey MD Primary Care Provider Unavailab rosi Collier, Jyoti Unavailable [phone] REASON FOR VISIT Cx 02/16 appt Encounters Encounter Location Date Provider Diagnosis [address] [address] 02/02/2024 Jyoti Black Plan Of Treatment No Information Progress Notes * Franko DUMASDOB:[birth year] (68 yo M)Acc No.[id number]:02/02/2024 Patient:?Franko DUMAS :1955???Age:68 Y???Sex:Male Address:[address] [place] [address], [address] * true * Date:? Generated for Tamikai veronica/Concepcion/eTransmitting on:?05/25/2024 01:02 PM EDT
--- OUTSIDE RECORDS SUMMARY | 2024-05-25 13:03 | XMS_ITS | Clinical Summary ---
Author Organization [facility] Address [address] [place] [address] Care Team Providers Care Tap Puller Name Role Phone Maria Del Rosario Mckenzie MD Unavailable [phone] Ulysses Lugo MD Primary Care Provider [phone] Encounters Date Type Department Care Team Description 04/01/2024 Transcribe Orders [facility] [address] [address] Maria Del Rosario Mckenzie MD Parkinson's disease without dyskinesia or fluctuating manifestations (HCC) (Primary Dx) 03/29/2024 Telephone [facility] [address] [address] Alida Maria RN Appointment from Last 3 Months Social History Tobacco Use Types Packs/Day Years Used Date Smoking Tobacco: Never Assessed Sex and Gender Information Value Date Recorded Sex Assigned at Not on file Gender Identity Not on file Sexual Orientation Not on file Plan of Treatment Upcoming Encounters Date Type Department Care Team (Late st Contact Info) Description 06/21/2024 1:00 PM EDT Office Visit [facility] [address] [place] [address] Arben Maharaj MD [address] [place] [phone] Health Maintenance Due Date Last Done Comments Hepatitis C Virus Screening 1955 DTaP/Tdap/Td Vaccines (1 - Tdap) 12/17/1974 Colonoscopy 12/17/2000 Pneumococcal Vaccines 50+ (1 of 1 - PCV) 12/17/2005 Zoster (Shingles) Vaccine (1 of 2) 12/17/2005 Influenza Vaccine 10/01/2023 COVID-19 Vaccine (1 - 2023-2 5 season) 2023 RSV Vaccine 60 years and old er and Patients (1 - 1-dose 75+ series) 12/17/2030 Hepatitis B Vaccines Aged Out No long er eligible based on patient's age to complete this topic Care Teams Tap Puller Relationship Specialty Start Date End Date Ulysses Lugo MD [address] [place] [id number] PCP - General Internal Medicine 04/01/24 Maria Del Rosario Mckenzie MD [address] [place] [id number] Neurology 03/29/24
== END 2024-05-25 11:40 | disposition home or self-care (01) ==
LOC: HO.HSMS 10:53
PROVIDERS: PCP Internal Medicine; Visit Provider Psychiatry & Neurology Neurology
DX: G20.A1 Parkinson's disease without dyskinesia, without mention of fluctuations (principal); G47.33 Obstructive sleep apnea (adult) (pediatric)
CPT/HCPCS: 99214; G2211

== ENCOUNTER → 2024-05-25 10:52 | Outpatient (BNVA) | payer MEDICARE, BC, SELFPAY | PROVIDERS: PCP Internal Medicine; Visit Provider Psychiatry & Neurology Neurology | DX: G20.A1 Parkinson's disease without dyskinesia, without mention of fluctuations (principal); G47.33 Obstructive sleep apnea (adult) (pediatric) | CPT/HCPCS: 99212 ==

== ENCOUNTER 2024-09-29 08:50 | Outpatient (AMB) | payer MEDICARE, BC, SELFPAY ==
--- NOTE | 2024-09-29 08:49 | A.OFFVIS_ITS ---
Vital Signs 09/29/24 08:50 Height 6 ft Weight 241 lb BMI 32.7 BP 110/60 Blood Pressure Location Rt brachial Position Sitting Intake Visit Reasons: 4 mnts f/u appt Intake Note: Patient presents 4 month follow up for JOSE - Compliance in chart Psychopaedic Nurse Required: No Accompanied by: Self / Same As Patient Allergies Bees Allergy (Severe, Uncoded 09/29/24 08:55) Swelling Medication List - Last Reconciled 09/29/24 by Maria Del Rosario Mckenzie MD apixaban (Eliquis) 2.5 mg PO BID azelastine 1 spray intranasal BID carbidopa-levodopa 25-100 mg (Sinemet) 1 tab PO .5 times a day cetirizine (Zyrtec) 10 mg PO DAILY PRN fluticasone furoate-vilanterol 100-25 mcg/dose (Breo Ellipta) 1 inh inhalation DAILY trihexyphenidyl 1 mg (1/2 x 2 mg) PO TID HPI Comments Details: 68y/o male comes for follow up of parkinsons. He had evaluation for MRI guided ultrasound therapy at [facility].He saw Dr.Jeffrey Teixeira - but looks like he did not have discussion with the patient about MRI guided ultrasound. His tremors are worse but he can still function.He increased his sinemet dose 5 times a day and he is on trihexyphenidyl 2mg 1/2 tab bid He is active - walks 3 miles a day .He does long distance biking - rides about 50 miles a week in summer. Now he skates No falls He is on 1 tab qid sinemet 25/100.He does not want to increase In Mar 2021 he went to atrial fibrillation and had cardioversion. He was started on flecainide and metoprolol.His tremors are intermittent.He had a recent ablation memory is good, occasionally forgets names. sleep is good, has some vivid dreams. He is compliant with CPAP. 90 day compliance 100% Usage hrs over 6 hrs AHI 2.2 CPAP at 7 cm Denies depression , anxiety. He is motivated.He is active , works on his yard. Bowel movements are stable. He denies any trouble with urination. No change in speech. he is independent in all his activities of daily living. [facility] Medical History Parkinson's disease without dyskinesia Toxic effect of trichloroethylene Plantar fasciitis Obstructive sleep apnea Atrial fibrillation Surgical History H/O heart surgery Family History Family/Other Stroke Thyroid disease Father Cerebral hemorrhage Mother No problems noted. Social History Alcohol intake: never Patient Tobacco Use Status: Never used Tobacco Physical Exam Vital Signs: BMI result Body Mass Index 32.7 Const General: cooperative, healthy appearing and no acute distress Orientation/consciousness: patient oriented x3 HEENT Head: Yes normal to inspection Neck Other: mild antecollis and restricted range of motion Neuro Other: Mild decreased blink and facial expression Voice- normal Left UE moderate amplitude rest tremors Fine Finger movements - moderately decreased jluis l>R Alternating hand movements - decreased jluis Hand movements - decreased jluis Foot taps- decreased jluis No cog wheel rigidity gait - stooped,good stride and turning decreased arm swing L>R General: patient oriented x3 and no focal motor deficits Cranial nerves: Yes CN's II-XII intact bilaterally, Yes Bilaterally intact EOM present, Yes Normal facial strength present and Yes Midline tongue present Motor exam (neuro): 5/5 motor strength present throughout and Normal motor muscle tone present throughout Coordination: [id number] test normal Assessment & Plan Assessment & Plan (1) Parkinson's disease without dyskinesia: Code(s): G20.A1 - Parkinson's disease without dyskinesia, without mention of fluctuations Category: Medical Qualifiers: Fluctuating manifestations: without fluctuating manifestations Qualified Code(s): G20.A1 - Parkinson's disease without dyskinesia, without mention of fluctuations (2) Obstructive sleep apnea: Code(s): G47.33 - Obstructive sleep apnea (adult) (pediatric) Category: Medical Plan continue trihexyphenidyl 2mg 1/2 ab q noon and qhs sinemet 25/100 5 times a day continue exercise CPAP compliance stressed MRI guided USG - at [facility] - notes form Medications: Changed From carbidopa-levodopa 25-100 mg (Sinemet) 1 tab PO QID 360 tabs 6RF To carbidopa-levodopa 25-100 mg (Sinemet) 1 tab PO .5 times a day 450 tabs 6RF Coding Level of Care Code Est Pt Level 4 (25268) Complex EM visit Add On G2211 Diagnoses Parkinson's disease without dyskinesia or fluctuating manifestations G20.A1 Fluctuating manifestations: without fluctuating manifestations Obstructive sleep apnea G47.33
[2024-09-29 08:50] VITALS: BP 110/60; BMI 32.7
--- OUTSIDE RECORDS SUMMARY | 2024-09-29 09:09 | XMS_ITS | Clinical Summary ---
Author Organization [facility] Address [address] [place] [address] Care Team Providers Care Coffee Taster Name Role Phone Maria Del Rosario Mckenzie MD Unavailable [phone] Ulysses Lugo MD Primary Care Provider [phone] Allergies Active Allergy Reactions Criticality Noted Date Comments Bee Pollen Shortness Of Breath Medium 11/26/2023 Other Shortness Of Breath Medium 01/01/2023 Bee Stings Other reaction(s): Unknown Medications Eliquis 5 MG tablet Take 1 tablet (5 mg total) by mouth 2 times a day. Active Azelastine HCl 137 MCG/SPRAY nasal spray INSTILL 2 SPRAYS INTO BOTH NOSTRILS TWICE DAILY FOR 30 DAYS 5 Active flecainide (TAMBOCOR) 150 MG tablet Take 2 tablets (300 mg total) by mouth. 5 Active fluticasone-vilante rol (BREO ELLIPTA) 100-25 MCG/ACT inhaler Inhale 1 puff. Active metoPROLOL TARTRATE (LOPRESSOR) 25 MG tablet Take 2 tablets (50 mg total) by mouth 2 (two) times a day as needed. 5 06/09/19 26 Active trihexyphenidyl (ARTANE) 2 MG tablet TAKE 1/2 TABLET ORALLY 3 TIMES A DAY GIVE WITH FOOD (MEAL/SNACK) Active carbidopa-levodopa (SINEMET) 25-100 MG per tabletIndications:P arkinson's disease without dyskinesia or fluctuating manifestations (HCC) Take 1.5 tablets by mouth 3 (three) times a day. 7am, 1pm, 7pm 405 tablet 1 5 Active Active Problems Problem Noted Date Diagnosed Date Atrial fibrillation 11/26/2023 Overview (06/21/2024): Paroxysmal atrial fibrillation: First ablation in 2011. [...] to be used on an as-needed basis. Parkinson's disease 11/26/2023 Bradycardia 05/07/2020 Overview (06/21/2024): Bradycardia Palpitations 05/07/2020 Overview (06/21/2024): Palpitations Animal dander allergy 04/18/2020 Perennial allergic rhinitis 04/18/2020 Bee sting reaction 10/13/2019 PND (post-nasal drip) 10/13/2019 Sleep apnea 10/13/2019 Wheezing 10/13/2019 Encounters Date Type Department Care Team Description 07/14/2024 Telephone [facility] [address] [address] Alida Maria RN from Last 3 Months Immunizations Immunization Administration Dates Next Due Influenza (AFLURIA/FLUZONE) Inactivated/Split Quadrivalent with Preservative IM 12/20/2017 Influenza High-Dose Trivalen t,(FLUZONE HIGH-DOSE), Perservative Free IM 0.5 mL 65 years and older 11/28/2022 Influenza Virus Trivalent Split Vaccine (MDV) IM 12/15/2013 Influenza, Quadrivalent (FLU ARIX, AFLURIA, FLULAVAL, FLUZONE) Preservative Free IM 02/04/2017 Pneumococcal Conjugate 13-Valent 02/15/2021 Tdap 01/04/2015 Family History Medical History Relation Name Comments Cerebral Hemorrhage Father Aneurysm Mother Relation Name Status Comments Brother Alive Daughter Alive Father Mother Sister Alive Son Alive Social History Tobacco Use Types Packs/Day Years Used Date Smoking Tobacco: Never Smokeless Tobacco: Never Tobacco Cessation:Counseling Given: Not Answered Alcohol Use Standard Drinks/Week Comments Not Currently 0 (1 standard drink = 0.6 oz pur e alcohol) Sex and Gender Information Value Date Recorded Sex Assigned at Not on file Legal Sex Male 12:39 PM EST Gender Identity Not on file Sexual Orientation Not on file Last Filed Vital Signs Vital Sign Reading Time Taken Comments Blood Pressure 158/81 06/21/2024 12:47 PM EDT Pulse 61 06/21/2024 12:47 PM EDT Temperature - - Respiratory Rate - - Oxygen Saturation - - Inhaled Oxygen Concentration - - Weight 111 kg (245 lb) 06/21/2024 12:47 PM EDT Height 181.6 cm (5' 11.5 ) 06/21/2024 12:47 PM E DT Body Mass Index 33.69 06/21/2024 12:47 PM EDT Plan of Treatment Upcoming Encounters Date Type Department Care Team (Late st Contact Info) Description 12/21/2024 1:40 PM EDT Office Visit [facility] [address] [place] [address] Linsey Musa PA-C [address] [address] Health Maintenance Due Date Last Done Comments Hepatitis C Virus Screening 1955 Colonoscopy 12/17/2000 Zoster (Shingles) Vaccine (1 of 2) 12/17/2005 Pneumococcal Vaccines 50+ (2 of 2 - PCV20 or PCV21) 02/15/2022 02/15/2021 COVID-19 Vaccine (1 - season) 2023 Influenza Vaccine 09/30/2024 11/28/2022, , 02/04/2017, Additional history exists DTaP/Tdap/Td Vaccines (2 - Td or Tdap) 01/04/2025 01/04/2015 RSV Vaccine 60 years and older and Patients (1 - 1-dose 75+ series) 12/17/2030 Hepatitis B Vaccines Aged Out No long er eligible based on patient's age to complete this topic Insurance MEDICARE PART A & B [facility] Care Teams Coffee Taster Relationship Specialty Start Date End Date Ulysses Lugo MD [address] [facility] [address] [place] [address] PCP - General Internal Medicine 04/01/24 Maria Del Rosario Mckenzie MD [address] [facility] [address] [place] [address] Neurology 03/29/24
--- OUTSIDE RECORDS SUMMARY | 2024-09-29 09:09 | XMS_ITS | Patient Health Record ---
Author Organization [facility] Address [address] [facility] [place] [address] Care Team Providers Care Wildlife Forensic Geneticist Name Role Phone Ulysses Richey MD Primary Care Provider Unavailab rosi CollierJyoti Unavailable [phone] Allergies Allergen (clinical drug ingredient) Drug/Non Drug [...] Splint AFO - L1930 1 wear at rest; Duration: 30 days Not-Taking Physical Therapy . . . 2-3x/week; Duration: 3-4 weeks 09/30/2023 Not-Taking Carbidopa 25 MG Orally [...] primary osteoarthritis of the ankle and/or foot (677468494) Primary osteoarthritis, right ankle and foot (M19.071) Active confirmed Problem Localized, primary osteoarthritis of the ankle and/or foot (134839746) Primary osteoarthritis, left ankle and foot (M19.072) Active confirmed Problem Non-pressure chronic ulcer of other part of right foot limited to breakdown of skin (L97.511) Active confirmed Problem Acquired hammer toe of right foot (3990836775780097) Other hammer toe(s) (acquired), right foot (M20.41) Active confirmed Problem Acquired hammer toe of left foot (5008784820789742) Other hammer toe(s) (acquired), left foot (M20.42) Active confirmed Problem 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) Active confirmed Problem PlantarFlexion o f metatarsal of left foot (M21.6X2) Active confirmed Vital Signs Height 6ft in 11/17/2023 Weight 235 lbs 11/17/2023 BMI 31.87 kg/m2 11/17/2023 Encounters Encounter Location Date Provider Diagnosis [address] [place] [address] 09/30/2023 Jyoti Collier Acute left ankle cristal n M25.572 ; Achilles tendinitis of left lower extremity M76.62 ; Pain of left heel M79.672 ; Short Achilles tendon (acquired), left ankle M67.02 ; Ingrown nail L60.0 and Sprain of posterior talofibular ligament of left ankle, initial encounter S93.492A [address] [place] [address] 11/17/2023 Jyoti Collier Acute left ankle cristal n M25.572 ; Achilles tendinitis of left lower extremity M76.62 ; Pain of left heel M79.672 and Short Achilles tendon (acquired), left ankle M67.[address] [place] [address] 02/02/2024 Jyoti Collier Assessments Encounter Date Diagnosis [...] Treatment Pending Test Test Name Order Date 92787-ACHULKO NAIL, 1-03/07/2020 32629-HVMLPGB NAIL, -07/04/2020 04968-Vhno Destruction, -07/04/2020 33120-Vuyr Destruction, -12/20/2019 94873-Crws Destruction, -14 03/07/2020 28946- Debride <25 sq cm 11/04/201746978,P3574-FCO TENDON SHEATH/LIGAMENT 1 04/08/2017 Insurance Providers Payer Name Payer Address Payer Phone Subscriber Number Group Number Insured Name Patient Relationship to Insured Coverage Start Date Coverage End Date Medicare National [employer] [address] [place] [address] [id number] Franko Deluna Self - patient is the insured [facility] [address] [place] [address] [id number] Franko Deluna Self - patient is the insured Medical (General) History Medical History History ICD Code Measles Mumps Chicken pox Parkinsons disease Surgical History Surgery Date(Month/Year) rght leg varicose veins removed 03/2018 cardio ablation 05/2021
--- OUTSIDE RECORDS SUMMARY | 2024-09-29 09:09 | XMS_ITS ---
Author Name [facility] Organization Unknown History of Medication Use Medication Directions Dispensed Refills Start Date End Date Stat us Azelastine HCl 137 MCG/SPRAY nasal spray INSTILL 2 SPRAYS INTO BOTH NOSTRILS TWICE DAILY FOR 30 DAYS 06/18/2024 active flecainide (TAMBOCOR) 150 MG tablet Take 2 tablets (300 mg total) by mouth. 06/08/2024 active metoPROLOL TARTRATE (LOPRESSOR) 25 MG tablet Take 2 tablets (50 mg total) by mouth 2 (two) times a day as needed. 06/08/2024 active carbidopa-levodopa (SINEMET) 25-100 MG per tablet Take 1.5 tablets by mouth 3 (three) times a day. 7am, 1pm, 7pm 05/30/2024 06/21/2024 active Eliquis 5 MG tablet Take 1 tablet (5 mg total) by mouth 2 times a day. active fluticasone-vilanterol (BREO ELLIPTA) 100-25 MCG/ACT inhaler Inhale 1 puff. activ e trihexyphenidyl (ARTANE) 2 MG tablet TAKE 1/2 TABLET ORALLY 3 TIMES A DAY GIVE WITH FOOD (MEAL/SNACK) active Allergies Allergen Reaction Severity Comment Documented Date Source Statu s BEE POLLEN SHORTNESS OF BREATH 11/26/2023 [facility] active OTHER SHORTNESS OF BREATH Bee Stin gs Other reaction(s): Unknown 01/01/2023 [facility] active Problems Problem Status Onset Date Problem Type Date of Resoluti on Source Atrial fibrillation active 2023-11-26 ProblemAct [facility] PND (post-nasal drip) active 2019-10-13 ProblemAct [facility] Perennial allergic rhinitis active 2020-04-18 ProblemAct [facility] Wheezing active 2019-10-13 ProblemAct [facility] Bradycardia active 2020-05-07 ProblemAct [facility] Bee sting reaction active 2019-10-13 ProblemAct [facility] Animal dander allergy active 2020-04-18 ProblemAct [facility] Palpitations active 2020-05-07 ProblemAct [facility] Parkinson's disease active 2023-11-26 ProblemAct [facility] Sleep apnea active 2019-10-13 ProblemAct [facility] Immunizations Vaccine Date Source Lot Number Status Influenza High-Dose Trivalen t,(FLUZONE HIGH-DOSE), Perservative Free IM 0.5 mL 65 years and older 11/28/2022 [facility] [id number] completed Pneumococcal Conjugate 13-Valent 02/15/2021 [facility] [id number] completed Influenza (AFLURIA/FLUZONE) Inactivated/Split Quadrivalent with Preservative IM 12/20/2017 [facility] completed Influenza, Quadrivalent (FLU ARIX, AFLURIA, FLULAVAL, FLUZONE) Preservative Free IM 02/04/2017 [facility] [id number] completed Tdap 01/04/2015 [facility] [id number] completed Influenza Virus Trivalent Sp lit Vaccine (MDV) IM 12/15/2013 [facility] [id number] completed Encounters Encounter Type Encounter Reason Primary Diagnosis Location Date Ambulatory Parkinson's disease without dyskinesia, without mention of fluctuations Parkinson's disease without dyskinesia, without mention of fluctuations [facility] 06/21/2024 Care Team Organization Name Specialty Phone Email Start Date End Da nadir [facility] 06/23/2024 07/22/2024 [facility]DR[facility] Primary Care 04/05/2024 [facility] 03/29/2024
--- OUTSIDE RECORDS SUMMARY | 2024-09-29 09:09 | XMS_ITS | Clinical Summary ---
Author Organization [address] [place] [address] [place] [address] Phone Care Team Providers Care Director Of Medical Services Name Role Phone Ulysses Quinn MD Primary Care Provider [phone] Allergies Active Allergy Reactions Criticality Noted Date [...] Shortness of Breath or Cough. 0 Active metoprolol tartrate (LOPRESSOR) 25 mg tablet Take 2 tablets (50 mg total) by mouth 2 (two) times a day if needed (to be taken with prn Flecainide). 60 each 11 5 06/09/19 26 Active flecainide (TAMBOCOR) 150 mg tablet Take 2 tablets (300 mg total) by mouth 1 (one) time each day if needed (not to exceed 300 mg in 24 hours, to be taken with metoprolol tartrate). 12 each 1 5 Active Eliquis 5 mg tablet TAKE 1 TABLET BY MOUTH TWICE A DAY 60 tablet 5 5 Active sildenafiL (VIAGRA) 100 mg tablet Take 1 tablet (100 mg total) by mouth 1 (one) time each day if needed for erectile dysfunction. Active Active Problems Problem Noted Date Diagnosed Date Atrial fibrillation (CMS/HCC V24, CMS/HCC V28) 0 11/26/2023 Overview (11/26/2023): Paroxysmal atrial fibrillation: First [...] on an as-needed basis. Assessment & Plan (07/18/2024 9:45 AM EDT): Raúl is largely doing well from an atrial fibrillation standpoint. He had both atrial fibrillation and atrial flutter ablated but does have occasional recurrences that usually respond to flecainide and metoprolol. I reviewed how to use those medicines with him and he will continue to use them and the pill in the pocket fashion. We talked about repeat ablation with pulsed field should it become necessary. We also talked about left atrial appendage closure which given his Parkinson's syndrome may be a preferred approach to stroke prevention in the future. He is going to undergo a procedure to limit the tremors for from his Parkinson syndrome. He should be at no great risk to have that done his noninvasive way he described it. If anticoagulation needs to be interrupted for up to 48 hours he should be a fairly low risk for stroke. Assessment & Plan (01/04/2024 10:09 AM EST): [...] again in the near future. Parkinson's disease (CMS/HCC V24, CMS/HCC V28) 0 11/26/2023 Bradycardia 05/07/2020 Overview (11/26/2023): Bradycardia Palpitations 05/07/2020 Overview (11/26/2023): Palpitations Animal dander allergy 04/18/2020 Perennial allergic rhinitis 04/18/2020 Bee sting reaction 10/13/2019 PND (post-nasal drip) 10/13/2019 Sleep apnea 10/13/2019 Wheezing 10/13/2019 Encounters Date Type Department Care Team Description 07/18/2024 9:00 AM EDT Office Visit [facility] [address] [facility] [address] [place] [id number] Vasile Patrick MD Longstanding persistent atrial fibrillation (CMS/HCC V24, CMS/HCC V28) (Primary Dx) from Last 3 Months Surgical History Surgery Date Site/Laterality Comments [facility] Medical History Medical History Date Comments Parkinson's disease ([facility] V24, [facility]/HCC V28) Social History Tobacco Use Types Packs/Day Years [...] Sign Reading Time Taken Comments Blood Pressure 134/70 07/18/2024 8:56 AM EDT Pulse 61 07/18/2024 8:56 AM EDT Temperature - - Respiratory Rate - - Oxygen Saturation 98% 07/18/2024 8:56 AM EDT Inhaled Oxygen Concentration - - Weight 114 kg (251 lb) 07/18/2024 8:56 AM EDT Height 180.3 cm (5' 11 ) 07/18/2024 8:56 AM EDT Body Mass Index 35.01 07/18/2024 8:56 AM EDT Plan of Treatment Upcoming Encounters Date Type Department Care Team (Late st Contact Info) Description 01/18/2025 9:40 AM EST Office Visit [facility] [address] [facility] [address] [place] [address] Lili Willis NP [address] [place] [address] Health Maintenance Due Date Last Done Comments Zoster Vaccines (1 of 2) 12/17/2005 Abdominal Aortic Aneurysm (AAA) Screen 02/08/2022 Cholesterol Screening (Lipid Panel) 02/08/2022 Colorectal Cancer Screening: Colonoscopy 02/08/2022 Falls Risk Assessment 02/08/2022 Hepatitis C Screening 02/08/2022 Social Influencers of Health Screening 02/08/2022 Pneumococcal Vaccine: 50+ Years (2 of 2 - PPSV23) 02/15/2022 02/15/2021 Medicare Annual Wellness Visit 03/12/2023 03/12/2022 COVID-19 Vaccine ( season) 2023 11/27/2020, 05/20/2020, 04/29/2020 Depression Screening 03/02/2024 Influenza Vaccine (#1) 2024 , 11/28/2022, 02/05/2022, Additional history exists DTaP,Tdap,and Td Vaccines (2 - Td or Tdap) 01/04/2025 01/04/2015 RSV Immunization Adult Patients (1 - 1-dose 75+ series) 12/17/2030 HIB [...] age to complete this topic Meningococcal B Vaccine Aged Out No l onger eligible based on patient's age to complete this topic RSV Immunization Patients Under 20 months Aged Out No longer eligible based on patient's age to complete this topic Varicella Vaccines Aged Out No longer eligible based on patient's age to complete this topic Procedures Procedure Name Priority Date/Time Associated Diagnosis Comments ECG 12-LEAD Routine 07/18/2024 9:45 AM EDT Longstanding persistent atrial fibrillation (CMS/HCC V24, CMS/HCC V28) from Last 3 Months Results * ECG 12 lead (07/18/2024 9:45 AM EDT) Ventricular Rate ECG 61 BPM GEMUSE Atrial Rate 61 BPM GEMUSE P-R Interval 150 ms GEMUSE QRS Duration 100 ms GEMUSE Q-T Interval 406 ms GEMUSE QTc 408 ms GEMUSE P Wave [place] 33 degrees GEMUSE R [place] 57 degrees GEMUSE T [place] 64 degrees GEMUSE ECG Interpretation Normal sinus rhythm Normal ECG When compared with ECG of 04-JAN-2024 09:30, Criteria for Septal infarct are no longer Present Confirmed by Severiano PATRICK JOHN ([id number]) on 07/19/2024 6:44:53 PM GEMUSE 07/18/2024 9:02 AM EDT 07/19/2024 6:44 PM EDT us Vasile Patrick MD ECG ORDERABLES Edited Result - Final GEMUSE from Last 3 Months Insurance MEDICARE [facility] Care Teams Director Of Medical Services Relationship Specialty Start Date End Date Ulysses Quinn MD [address] [place] [address] PCP - General Internal Medicine 11/26/23
== END 2024-09-29 09:25 | disposition home or self-care (01) ==
LOC: HO.HSMS 08:51
PROVIDERS: PCP Internal Medicine; Visit Provider Psychiatry & Neurology Neurology
DX: G20.A1 Parkinson's disease without dyskinesia, without mention of fluctuations (principal); G47.33 Obstructive sleep apnea (adult) (pediatric)
CPT/HCPCS: 99214; G2211

== ENCOUNTER → 2024-09-29 08:50 | Outpatient (BNVA) | payer MEDICARE, BC, SELFPAY | PROVIDERS: PCP Internal Medicine; Visit Provider Psychiatry & Neurology Neurology | DX: G47.33 Obstructive sleep apnea (adult) (pediatric) (principal); Z99.89 Dependence on other enabling machines and devices; G20.A1 Parkinson's disease without dyskinesia, without mention of fluctuations | CPT/HCPCS: 99212 ==